=== PATIENT | female | born 1985 | race Caucasian/White ===

== ENCOUNTER 2019-05-05 22:56 | Emergency (ER) | payer SELFPAY ==
[~2019-05-05] VITALS: Ht 154.9 cm; Wt 52.1 kg
[2019-05-05 22:57] VITALS: Ht 154.9 cm; Wt 52.1 kg
[2019-05-06] MEDS ORDERED: ONDANSETRON (ODT) 4 MG TAB ODT STA (02:06)
[2019-05-06] MEDS ORDERED: KETOROLAC 30 MG INJ IM STA (02:06)
[2019-05-06] MEDS ORDERED: ONDA4TAB14 PO (03:58)
[2019-05-06 04:08] VITALS: BP 109/52; PULSE 65; RESP 16
--- NOTE | 2019-05-06 04:33 | ERD ---
ER Documentation Chief Complaint Chief Complaint VOMITING X'S 1 DAY, MUNOZ, DIZZINESS HPI 34-year-old female brought in by her with concerns for near syncopal episode which occurred while at [employer] earlier today. The patient states she was wearing clothing from head to toe and was very hot and was not drinking enough water and she began to feel lightheaded. She fell backwards but did not lose consciousness. She did not hit her head or sustain any other injuries. She states she believes she felt lightheaded because she drank 2 cups of coffee this morning and did not eat. She has had some intermittent nausea and headache which she rates 5/10 in severity. She denies any syncope, chest pain, abdominal pain, fevers, chills, or other symptoms at this time. ROS All systems reviewed and are negative except as per history of present illness. Medications Home Meds Active Scripts Ondansetron (Ondansetron Odt) 4 Mg Tab.rapdis, 4 MG PO Q6H PRN for NAUSEA AND/OR VOMITING, #10 TAB Prov:ARISTEO LOMBARDO PA-C 05/06/19 Allergies Allergies: Coded Allergies: No Known Allergy (Unverified , 05/05/19) PMhx/Soc Medical and Surgical Hx: pt denies Medical Hx, pt denies Surgical Hx Hx Alcohol Use: No Hx Substance Use: No Hx Tobacco Use: No Smoking Status: Never smoker FmHx Family History: No diabetes Physical Exam Vitals Vital Signs Date Temp Pulse Resp B/P (MAP) Pulse Ox O2 O2 Flow FiO2 Time Delivery Rate 05/06/19 98.0 65 16 109/52 99 Room Air 04:08 (71) 05/05/19 98.7 96 18 108/57 100 22:57 (74) Physical Exam Const: No acute distress Head: Atraumatic Eyes: Normal Conjunctiva ENT: Normal External Ears, Nose and Mouth. Neck: Full range of motion. No meningismus. Resp: Clear to auscultation bilaterally Cardio: Regular rate and rhythm, no murmurs Abd: Soft, non tender, non distended. Normal bowel sounds. No rebound tenderness or guarding. No McBurney's point tenderness. Skin: No petechiae or rashes Back: No midline or flank tenderness Ext: No cyanosis, or edema Neur: Awake and alert. No neurological deficits noted. Psych: Normal Mood and Affect Result Diagram: 05/06/19 0257 05/06/19 0257 Results 24 hrs Laboratory Tests Test 05/06/19 02:47 05/06/19 02:57 05/06/19 03:16 POC Beta HCG, Qualitative NEGATIVE White Blood Count 7.1 10^3/ul Red Blood Count 4.59 10^6/ul Hemoglobin 12.0 g/dl Hematocrit 37.3 % Mean Corpuscular Volume 81.3 fl Mean Corpuscular Hemoglobin 26.1 pg Mean Corpuscular Hemoglobin Concent 32.2 g/dl Red Cell Distribution Width 13.6 % Platelet Count 259 10^3/UL Mean Platelet Volume 10.1 fl Immature Granulocytes % 0.100 % Neutrophils % 66.9 % Lymphocytes % 28.1 % Monocytes % 4.5 % Eosinophils % 0.1 % Basophils % 0.3 % Nucleated Red Blood Cells % 0.0 /100WBC Immature Granulocytes # 0.010 10^3/ul Neutrophils # 4.8 10^3/ul Lymphocytes # 2.0 10^3/ul Monocytes # 0.3 10^3/ul Eosinophils # 0.0 10^3/ul Basophils # 0.0 10^3/ul Nucleated Red Blood Cells # 0.0 10^3/ul Sodium Level 141 mmol/L Potassium Level 4.3 mmol/L Chloride Level 105 mmol/L Carbon Dioxide Level 26 mmol/L Anion Gap 10 Blood Urea Nitrogen 10 mg/dl Creatinine 0.44 mg/dl Est Glomerular Filtrat Rate mL/min > 60 mL/min Glucose Level 116 mg/dl Calcium Level 9.2 mg/dl Total Bilirubin 0.5 mg/dl Direct Bilirubin 0.00 mg/dl Indirect Bilirubin 0.5 mg/dl Aspartate Amino Transf (AST/SGOT) 22 IU/L Alanine Aminotransferase (ALT/SGPT) 17 IU/L Alkaline Phosphatase 86 IU/L Total Protein 7.9 g/dl Albumin 4.5 g/dl Globulin 3.40 g/dl Albumin/Globulin Ratio 1.32 Bedside Urine pH (LAB) 6.0 Bedside Urine Protein (LAB) 1+ Bedside Urine Glucose (UA) Negative Bedside Urine Ketones (LAB) 3+ Bedside Urine Blood 2+ Bedside Urine Nitrite (LAB) Negative Bedside Urine Leukocyte Esterase (L Negative Current Medications Medications Dose Sig/Sánchez Start Time Status Last (Trade) Ordered Route PRN Stop Time Admin Dose Reason Admin Ondansetron 4 mg ONCE STAT 05/06/19 DC 05/06/19 HCl (Zofran ODT 02:06 05/06/19 02:39 Odt) 02:09 Ketorolac 30 mg ONCE STAT 05/06/19 DC 05/06/19 Tromethamine IM 02:06 05/06/19 02:52 (Toradol) 02:09 Procedures/MDM 34-year-old female presenting with near syncopal event which occurred while at [employer] earlier. Patient symptoms likely secondary to vasovagal episode, mild dehydration, or mild hypoglycemia. Laboratory studies here were essentially unremarkable. No evidence of significant electrolyte dysfunction, severe anemia, or other abnormalities. Patient was administered Zofran and Toradol and was significantly improved prior to discharge. Patient's neurologic symptoms have stabilized while they have been evaluated in the department and are appropriate for outpatient work up. No evidence of meningitis, intracranial bleed, seizure, stroke, or elevated intracranial pressure. Departure Diagnosis: Primary Impression: Near syncope Condition: Fair Patient Instructions: Heat Stress: Warning Signs Referrals: [facility] YOU HAVE RECEIVED A MEDICAL SCREENING EXAM AND THE RESULTS INDICATE THAT YOU DO NOT HAVE A CONDITION THAT REQUIRES URGENT TREATMENT IN THE EMERGENCY DEPARTMENT. FURTHER EVALUATION AND TREATMENT OF YOUR CONDITION CAN WAIT UNTIL YOU ARE SEEN IN YOUR DOCTORS OFFICE WITHIN THE NEXT 1-2 DAYS. IT IS YOUR RESPONSIBILITY TO M QUINTON AN APPOINTMENT FOR FOLOW-UP CARE. IF YOU HAVE A PRIMARY DOCTOR --you should call your primary doctor and schedule an appointment IF YOU DO NOT HAVE A PRIMARY DOCTOR YOU CAN CALL OUR PHYSICIAN REFERRAL HOTLINE AT IF YOU CAN NOT AFFORD TO SEE A PHYSICIAN YOU CAN CHOSE FROM THE FOLLOWING [facility] [id number] [facility]. [facility] [address]. [facility] [address] [facility] [facility] [address] [facility]. [facility] [address] [facility] [facility]. [address] Additional Instructions: Call your primary care doctor TOMORROW for an appointment during the next 1-2 days.See the doctor sooner or return here if your condition worsens before your appointment time. ARISTEO LOMBARDO PA-C May 06, 2019 04:33
== END 2019-05-06 04:08 | disposition home or self-care (01) ==
LOC: FTE 22:56
DX: R55 Syncope and collapse (principal); R11.2 Nausea with vomiting, unspecified
CPT/HCPCS: 36415; 80053; 81003; 81025; 85025; 96372; 99284; J1885